=== PATIENT | female | born 1930 | race Caucasian/White ===

== ENCOUNTER → 2018-06-27 | Outpatient (CLI) | payer MEDICARE | LOC: MC.RAD 14:09 | DX: Z12.31 Encounter for screening mammogram for malignant neoplasm of breast (principal) ==

== ENCOUNTER 2019-09-02 09:45 | Outpatient (RCR) | payer MEDICARE | END 2019-11-03 | disposition home or self-care (01) | LOC: WSOT | DX: S56.211A Strain of other flexor muscle, fascia and tendon at forearm level, right arm, initial encounter (principal) ==